=== PATIENT | male | born 2000 ===

== ENCOUNTER 2022-04-23 22:39 | Day surgery (SDCO) | payer MEDICAID ==
[~2022-04-23] VITALS: Ht 170.2 cm; Wt 96.7 kg
[~2022-04-23 22:39] MED LIST: KEFLEX250 MG PO; VOLTAREN **OUT75 MG PO
[2022-04-24 00:18] LABS: BASOPHIL 0.3 % (0-2); EOSINOPHIL 0.1 % (0-5); HGB 14.5 g/dl (13.2-18.0); MCH 30.1 pg (25.0-31.0); MCHC 34.5 g/dL (32.0-36.0); MCV 87.3 fL (78.0-100.0); MONOCYTE 3.8 % (0-12); MPV 11.9 fL (6.0-9.5); NEUTROPHIL 82.3 % (41-80); NRBC 0; PLT 249 K/uL (150-400); RBC 4.81 M/uL (4.70-6.00); RDW 12.1 % (11.5-14.0)
[2022-04-24 00:28] LABS: ALBUMIN 4.4 g/dL (3.4-5.0); BILIRUBIN - TOTAL 0.5 mg/dL (0.2-1.0); BUN/CREAT RATIO (CALC) 17.7 RATIO; CREATININE 0.79 mg/dL (0.67-1.17); GLOBULIN (CALCULATION) 3.2 g/dL; POTASSIUM 3.8 mmol/L (3.5-5.1); TOTAL PROTEIN 7.6 g/dL (6.4-8.2)
[2022-04-24 02:54] LABS: INR 1.19 (0.9-1.2); PROTHROMBIN TIME 14.5 SECONDS (11.8-13.4)
[2022-04-24] MEDS ORDERED: NORCO 5-325 TA1 EACH PO ×2 (14:09→14:38)
== END 2022-04-24 16:06 | disposition home or self-care (01) ==
LOC: FER 22:39 → FMS 04-24 02:22
PROVIDERS: Emergency Medicine; ADMIT Internal Medicine
DX: K35.33 Acute appendicitis with perforation, localized peritonitis, and gangrene, with abscess (principal); Z20.822 Contact with and (suspected) exposure to COVID-19
CPT/HCPCS: 36415; 80053; 83690; 85025; 85610; 93005; 94010; C9113; G0378; J1100; J1644; J1885; J2250; J2405; J2543; J2704; J3010; J7030; J7120; Q9967; U0002

== ENCOUNTER 2022-06-12 21:45 | Emergency (ER) | payer OTHER ==
[~2022-06-12 21:45] MED LIST changes: +NORCO 5-325 TA1 EACH PO
[2022-06-12 23:00] LABS: BASOPHIL 0.3 % (0-2); EOSINOPHIL 0.1 % (0-5); HGB 13.4 g/dl (13.2-18.0); LYMPHOCYTE 15.5 % (15-48); MCH 30.7 pg (25.0-31.0); MCHC 34.4 g/dL (32.0-36.0); MCV 89.4 fL (78.0-100.0); MONOCYTE 8.2 % (0-12); MPV 11.3 fL (6.0-9.5); NEUTROPHIL 75.6 % (41-80); NRBC 0; PLT 236 K/uL (150-400); RBC 4.36 M/uL (4.70-6.00); RDW 12.3 % (11.5-14.0); WBC 15.7 K/uL (4.0-10.5)
[2022-06-12 23:18] LABS: ALBUMIN 3.9 g/dL (3.4-5.0); ALKALINE PHOSHATASE 58 U/L (46-116); ALT 45 U/L (16-63); AST 21 U/L (15-37); BILIRUBIN - TOTAL 1.6 mg/dL (0.2-1.0); BUN 13 mg/dL (7-18); BUN/CREAT RATIO (CALC) 18.1 RATIO; C-REACTIVE PROTEIN >18.00 mg/dL (<=0.90); CHLORIDE 100 mmol/L (98-107); CO2 (BICARBONATE) 25 mmol/L (21-32); CREATININE 0.72 mg/dL (0.67-1.17); GLOBULIN (CALCULATION) 3.6 g/dL; GLUCOSE 105 mg/dL (74-106); POTASSIUM 3.6 mmol/L (3.5-5.1); TOTAL PROTEIN 7.5 g/dL (6.4-8.2)
== END 2022-06-13 02:44 | disposition left against medical advice (07) ==
LOC: FER 21:45
PROVIDERS: Internal Medicine
DX: M25.562 Pain in left knee (principal); J45.909 Unspecified asthma, uncomplicated; F17.290 Nicotine dependence, other tobacco product, uncomplicated; Z53.29 Procedure and treatment not carried out because of patient's decision for other reasons; Z28.310 Unvaccinated for COVID-19
CPT/HCPCS: 36415; 73560; 80053; 84145; 84550; 85025; 86140; 96365; 96367; 96368; 96375; J0696; J1100; J1170; J2543; J3370; J7050